=== PATIENT | female | born 1950 | race Caucasian/White ===

== ENCOUNTER → 2018-08-14 | Outpatient (CLI) | payer OTHER ==
[~2018-08-14] MED LIST: ADVAIR 250-501 EACH IH; ALLEGRA-D 12 H1 EAC1 PO; ALLEGRA-D 24 H1 EACH PO; AMBIEN 5 MG TABL5 M1 PO; ARTIFICIAL TEA1 EACH OP; ASPIR 8181 MG PO; ATIVAN0.5 MG PO; ATROVENT IH; CATAPRES0.1 MG PO; CELEBREX 200 M200 MG PO; CENTRUM SILVER1 EAC4 PO; COLACE100 MG PO; COMBIVENT INH; CYCLOBENZAPRINE5 MG PO; DHA PO; HYDROCODONE-APA1 TA1 PO; LASIX 40 MG TAB40 MG GT; LISINOPRIL20 MG PO; LISINOPRIL30 MG PO; MIRALAX17 GM PO; MULTIVITAMINS1 EAC7 PO; NEURONTIN 300300 M1 PO; NEXIUM40 MG PO; OXYBUTYNIN 5 MG5 M2 PO; PREDNISONE 10 M10 MG PO; PRINIVIL20 MG PO; REGLAN 10 MG TA10 MG PO; SINGULAIR 10 MG10 M1 PO; VENLAFAXIN37.5 MG/1 PO; VERAPAMIL ER300 MG PO; VITAMIN D400 UNIT PO; [UNRECOGNIZED DRUG - OTHER] PO
== END ==
LOC: M.RAD 15:07
DX: M19.011 Primary osteoarthritis, right shoulder (principal); M16.11 Unilateral primary osteoarthritis, right hip; M47.817 Spondylosis without myelopathy or radiculopathy, lumbosacral region; M47.814 Spondylosis without myelopathy or radiculopathy, thoracic region; G89.29 Other chronic pain

== ENCOUNTER → 2019-03-03 | Outpatient (CLI) | payer OTHER | LOC: M.RAD 02-25 14:37 | DX: Z12.31 Encounter for screening mammogram for malignant neoplasm of breast (principal); M85.89 Other specified disorders of bone density and structure, multiple sites; Z78.0 Asymptomatic menopausal state; Z88.8 Allergy status to other drugs, medicaments and biological substances ==

== ENCOUNTER → 2020-03-03 | Outpatient (CLI) | payer OTHER | LOC: M.RAD 10:06 | PROVIDERS: ATTEND Registered Nurse Diabetes Educator | DX: Z12.31 Encounter for screening mammogram for malignant neoplasm of breast (principal) ==

== ENCOUNTER → 2020-05-17 | Outpatient (CLI) | payer OTHER | LOC: M.ULTRA 04-06 11:00 | PROVIDERS: ATTEND Registered Nurse Diabetes Educator | DX: I65.23 Occlusion and stenosis of bilateral carotid arteries (principal) ==

== ENCOUNTER → 2020-11-02 | Outpatient (CLI) | payer OTHER | LOC: M.RAD 15:07 | PROVIDERS: ATTEND Registered Nurse Diabetes Educator | DX: M25.712 Osteophyte, left shoulder (principal); G89.29 Other chronic pain ==

== ENCOUNTER → 2021-03-28 | Outpatient (CLI) | payer OTHER | LOC: M.RAD 13:45 | PROVIDERS: ATTEND Orthopaedic Surgery | DX: Z12.31 Encounter for screening mammogram for malignant neoplasm of breast (principal); J84.89 Other specified interstitial pulmonary diseases; M19.041 Primary osteoarthritis, right hand ==

== ENCOUNTER 2021-04-28 16:43 | Inpatient (IN) | payer OTHER ==
[~2021-04-28] VITALS: Ht 157.5 cm; Wt 113.4 kg
[2021-04-28 16:48] VITALS: BP 127/88
[2021-04-28] MEDS ORDERED: PROAIR HFA8.5 GM INH ×2 (16:58→17:17)
[2021-04-28] MEDS ORDERED: CALCIUM/MAGNESIUM ×2 (17:00→17:18)
[2021-04-28] MEDS ORDERED: FAMOTIDINE 40 M40 M1 PO ×2 (17:01→17:19)
[2021-04-28 17:14] LABS: ABSOLUTE EOSINOPHILS 0.2 thou/uL (0.0-0.7); ABSOLUTE LYMPHOCYTES 2.9 thou/uL (0.8-5.3); ABSOLUTE MONOCYTES 0.6 thou/uL (0.0-1.2); ABSOLUTE NEUTROPHILS 6.6 thou/uL (1.6-8.1); BASOPHILS 0.4 %; EOSINOPHILS 1.6 %; HEMATOCRIT 37.6 % (37.0-47.0); HEMOGLOBIN 12.6 gm/dL (12.0-15.0); LYMPHOCYTES 27.9 %; MCH 30.9 pg (26.0-34.0); MCHC 33.5 g/dL (28.0-37.0); MCV 92.4 fL (80.0-100.0); MONOCYTES 5.7 %; MPV 7.9 fl. (7.2-11.1); NUCLEATED RBCS 0 /100WBC; PLATELET COUNT* 320 thou/uL (150-400); POLYS 64.4 %; RBC 4.07 mil/uL (4.20-5.00); RDW-CV 15.9 % (10.5-14.5); WBC 10.3 thou/uL (4.0-11.0)
[2021-04-28] MEDS ORDERED: CLONIDINE HCL0.1 M1 PO (17:18)
[2021-04-28] MEDS ORDERED: CHILDREN'S ASPI81 M1 PO (17:18)
[2021-04-28] MEDS ORDERED: FLEXERIL PO (17:18)
[2021-04-28] MEDS ORDERED: COLACE 100 MG100 MG PO (17:19)
[2021-04-28] MEDS ORDERED: ALLEGRA ALLERG180 MG PO (17:20)
[2021-04-28] MEDS ORDERED: NEURONTIN 300M300 M2 PO (17:20)
[2021-04-28] MEDS ORDERED: FUROSEMIDE 20 M20 M1 PO (17:20)
[2021-04-28] MEDS ORDERED: ADVAIR 250-501 EACH INH (17:20)
[2021-04-28] MEDS ORDERED: MUCINEX600 MG PO (17:21)
[2021-04-28] MEDS ORDERED: IRON159 MG PO ×2 (17:23→17:26)
[2021-04-28 17:25] LABS: CALCIUM 8.9 mg/dL (8.5-10.1); POTASSIUM 3.4 mmol/L (3.5-5.1)
[2021-04-28] MEDS ORDERED: SINGULAIR 10 MG10 M1 PO (17:27)
[2021-04-28] MEDS ORDERED: LORAZEPAM 0.50.5 MG PO (17:27)
[2021-04-28] MEDS ORDERED: RELAFEN750 M1 PO (17:27)
[2021-04-28] MEDS ORDERED: OMEPRAZOLE 20 M20 M1 PO (17:27)
[2021-04-28] MEDS ORDERED: [UNRECOGNIZED DRUG - OTHER] (17:28)
[2021-04-28] MEDS ORDERED: DIOVAN HCT 1601 EACH PO (17:29)
[2021-04-28] MEDS ORDERED: KLOR-CON M2020 MEQ PO (17:29)
[2021-04-28] MEDS ORDERED: EFFEXOR XR150 MG PO (17:29)
[2021-04-28 17:35] LABS: ALBUMIN 3.7 g/dL (3.4-5.0); MAGNESIUM 1.8 mg/dL (1.8-2.4); TOTAL BILIRUBIN 0.7 mg/dL (<0.1-1.0); TOTAL PROTEIN 7.4 g/dL (6.4-8.2)
[2021-04-28 20:30] VITALS: BP 138/86; BP 148/75
[2021-04-29] VITALS: BP 146/84
[2021-04-29 04:00] VITALS: BP 139/67
[2021-04-29 05:58] LABS: HEMATOCRIT 36.5 % (37.0-47.0); HEMOGLOBIN 12.1 gm/dL (12.0-15.0); MCH 30.7 pg (26.0-34.0); MCHC 33.1 g/dL (28.0-37.0); MCV 92.8 fL (80.0-100.0); MPV 8.4 fl. (7.2-11.1); RBC 3.93 mil/uL (4.20-5.00); RDW-CV 16.3 % (10.5-14.5); WBC 9.1 thou/uL (4.0-11.0)
[2021-04-29 06:25] LABS: ALBUMIN 3.4 g/dL (3.4-5.0); CALCIUM 8.5 mg/dL (8.5-10.1); CREATININE 1.2 mg/dL (0.6-1.3); MAGNESIUM 1.8 mg/dL (1.8-2.4); POTASSIUM 4.1 mmol/L (3.5-5.1); TOTAL BILIRUBIN 0.6 mg/dL (<0.1-1.0); TOTAL PROTEIN 7.2 g/dL (6.4-8.2)
[2021-04-29 07:05] LABS: INFLUENZA A ANTIGEN Negative (Negative); INFLUENZA B ANTIGEN Negative (Negative)
--- NOTE | 2021-04-29 11:00 | EKG ---
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[employer] : 1950 Requested By: Jack Henry Order Number: [id number] MD: Mars Cortes Measurements Intervals [place] Rate: 93 P: 66 [place]: 167 QRS: -43 QRSD: 166 T: 92 QT: 422 QTc: 525 Interpretive Statements Sinus rhythm Left bundle branch block Compared to ECG 09/08/2014 14:06:20 Left bundle-branch block now present Left ventricular hypertrophy no longer present Electronically Signed On 04-29-2021 11:00:42 SIDER by Mars Cortes [email or web address] <ELECTRONICALLY SIGNED> By: Mars Cortes MD, [facility] 04/29/21 1100 165 165 Mars Cortes MD, [facility] /EPI
[2021-04-29 12:00] VITALS: BP 130/72
[2021-04-29 16:30] VITALS: BP 116/72
[2021-04-29 19:30] VITALS: BP 123/78
[2021-04-30 00:32] VITALS: BP 144/80
[2021-04-30 04:00] LABS: HEMATOCRIT 36.1 % (37.0-47.0); HEMOGLOBIN 11.8 gm/dL (12.0-15.0); MCH 30.4 pg (26.0-34.0); MCHC 32.6 g/dL (28.0-37.0); MCV 93.2 fL (80.0-100.0); MPV 8.4 fl. (7.2-11.1); RBC 3.87 mil/uL (4.20-5.00); RDW-CV 16.2 % (10.5-14.5); WBC 13.7 thou/uL (4.0-11.0)
[2021-04-30 04:20] VITALS: BP 130/79
[2021-04-30 04:23] LABS: ALBUMIN 3.2 g/dL (3.4-5.0); CALCIUM 8.2 mg/dL (8.5-10.1); POTASSIUM 3.4 mmol/L (3.5-5.1); TOTAL BILIRUBIN 0.4 mg/dL (<0.1-1.0); TOTAL PROTEIN 6.8 g/dL (6.4-8.2)
[2021-04-30 08:00] VITALS: BP 147/89
[2021-04-30 11:13] VITALS: BP 128/75
[2021-04-30 15:53] VITALS: BP 15/59
[2021-04-30 19:40] VITALS: BP 128/71
[2021-05-01 00:34] VITALS: BP 120/68
[2021-05-01 04:07] VITALS: BP 125/75
[2021-05-01 05:14] LABS: HEMATOCRIT 36.3 % (37.0-47.0); HEMOGLOBIN 11.8 gm/dL (12.0-15.0); MCH 30.1 pg (26.0-34.0); MCHC 32.4 g/dL (28.0-37.0); MCV 92.9 fL (80.0-100.0); MPV 8.1 fl. (7.2-11.1); RBC 3.91 mil/uL (4.20-5.00); RDW-CV 16.8 % (10.5-14.5)
[2021-05-01 05:49] LABS: ALBUMIN 3.2 g/dL (3.4-5.0); CALCIUM 8.3 mg/dL (8.5-10.1); CREATININE 1.1 mg/dL (0.6-1.3); MAGNESIUM 2.1 mg/dL (1.8-2.4); POTASSIUM 3.6 mmol/L (3.5-5.1); TOTAL BILIRUBIN 0.4 mg/dL (<0.1-1.0); TOTAL PROTEIN 6.7 g/dL (6.4-8.2)
[2021-05-01 08:00] VITALS: BP 144/83
[2021-05-01 11:52] VITALS: BP 153/79
--- NOTE | 2021-05-01 12:31 | 2DMMODE ---
[place] [address] 2 D/M-MODE ECHOCARDIOGRAM Name: VERENA DURAN Room: [address] IN [facility]#: [id number] Admission: 04/28/21 Attend Phys: Avis Martines, Discharge: Date of : 50 Date of Service: 05/01/21 1231 Report #: [id number] THIS REPORT FOR: cc: Ines Rizvi Tammy RNP Blick, David R. MD [facility] ~ APPROVED REPORT Study performed: 05/01/2021 10:18:10 EXAM: Comprehensive 2D, Doppler, and color-flow Echocardiogram Patient Location: In-Patient Room #: [facility] Status: routine BSA: 2.08 HR: 87 bpm BP: 144/83 mmHg Rhythm: NSR Other Information Study Quality: Good Indications elevated bnp Echo Enhancing Agent Indication: Endocardial border delineation Agent(s) / Amount(s) Used: Optison 3 cc 2D Dimensions IVSd: 11.87 (7-11mm) LVOT Diam: 19.79 (18-24mm) LVDd: 53.22 mm PWd: 10.80 (7-11mm) Ascending Ao: 36.57 (22-36mm) LVDs: 40.88 (25-40mm) Aortic Root: 30.21 mm Volumes Left Atrial Volume (Systole) LA ESV Index: 45.50 mL/m2 Aortic Valve AoV Peak Juan Antonio.: 1.65 m/s AO Peak Gr.: 10.89 mmHg LVOT Max P.86 mmHg AO Mean Gr.: 6.39 mmHg LVOT Mean P.22 [place] [address] 2 D/M-MODE ECHOCARDIOGRAM Name: VERENA DURAN Room: [address]#: [id number] Admission: 04/28/21 Attend Phys: Avis Martines, Discharge: Date of : 50 Date of Service: 05/01/21 1231 Report #: [id number] LVOT Max V: 1.10 m/s AO V2 VTI: 28.73 cm LVOT Mean V: 0.67 m/s WILSON (VTI): 1.97 cm2 LVOT V1 VTI: 18.42 cm Mitral Valve MV Mean Gr.: 8.95 mmHg E/A Ratio: 0.91 MV Decel. Time: 155.66 ms MV E Max Juan Antonio.: 1.63 m/s MV PHT: 45.14 ms MVA (PHT): 4.87 cm2 TDI E/Lateral E': 18.11 Lateral E' Juan Antonio.: 0.09 m/s Pulmonary Valve PV Peak Juan Antonio.: 1.25 m/s PV Peak Gr.: 6.28 mmHg Tricuspid Valve RAP Estimate: 5.00 mmHg TR Peak Gr.: 36.65 mmHg RVSP: 41.00 mmHg PA Pressure: 41.00 mmHg Left Ventricle Left ventricle is mildly dilated. There is global hypokinesis of the left ventricle. There is normal left ventricular wall thickness. Left ventricular systolic function is severely decreased. LVEF is 25-30%. Grade I - abnormal relaxation pattern. Right Ventricle The right ventricle is normal size. The right ventricular systolic function is normal. Atria Left atrium is moderately dilated. The right atrium size is normal. Aortic Valve Mild aortic valve sclerosis. No aortic regurgitation is present. There is no aortic valvular stenosis. Mitral Valve There is mitral annular calcification. The mitral valve is normal in structure. Moderately severe mitral regurgitation No evidence [place] [address] 2 D/M-MODE ECHOCARDIOGRAM Name: VERENA DURAN Room: [address]#: [id number] Admission: 04/28/21 Attend Phys: Avis Martines, Discharge: Date of : 50 Date of Service: 05/01/21 1231 Report #: [id number] Tricuspid Valve The tricuspid valve is normal in structure. Mild tricuspid regurgitation. estimated pa pressure 50 mm Hg Pulmonic Valve The pulmonary valve is normal in structure. Mild pulmonic regurgitation. Great Vessels The aortic root is normal in size. IVC is normal in size and collapses >50% with inspiration. Pericardium There is no pericardial effusion. <Conclusion> Left ventricle is mildly dilated. LVEF is 25-30%. Left atrium is moderately dilated. Mild aortic valve sclerosis. Moderately severe mitral regurgitation Mild tricuspid regurgitation. estimated pa pressure 50 mm Hg <ELECTRONICALLY SIGNED> By: Lawrence Palacios MD, FACC 05/01/21 1231 1231 1231 Lawrence Palacios MD, FACC /INF
[2021-05-01 16:00] VITALS: BP 142/84
[2021-05-01 20:00] VITALS: BP 130/86
[2021-05-02] VITALS (7 sets, daily range): BP systolic 135–146; BP diastolic 64–783
[2021-05-02 04:52] LABS: HEMATOCRIT 37.2 % (37.0-47.0); HEMOGLOBIN 12.2 gm/dL (12.0-15.0); MCH 30.7 pg (26.0-34.0); MCHC 32.9 g/dL (28.0-37.0); MCV 93.5 fL (80.0-100.0); MPV 8.9 fl. (7.2-11.1); NUCLEATED RBCS 0 /100WBC; PLATELET COUNT* 403 thou/uL (150-400); RBC 3.97 mil/uL (4.20-5.00); RDW-CV 16.6 % (10.5-14.5); WBC 13.6 thou/uL (4.0-11.0)
[2021-05-02 04:59] LABS: ALBUMIN 3.4 g/dL (3.4-5.0); CALCIUM 8.4 mg/dL (8.5-10.1); POTASSIUM 3.4 mmol/L (3.5-5.1); TOTAL BILIRUBIN 0.5 mg/dL (<0.1-1.0); TOTAL PROTEIN 6.9 g/dL (6.4-8.2)
[2021-05-02 07:23] LABS: ABSOLUTE MONOCYTES 0.1 thou/uL (0.0-1.2); ABSOLUTE NEUTROPHILS 11.4 thou/uL (1.6-8.1); PLATELET ESTIMATE ADEQUATE
[2021-05-02] MEDS ORDERED: COREG6.25 MG PO (09:23)
[2021-05-02] MEDS ORDERED: SPIRONOLACTONE25 MG PO (09:23)
[2021-05-02] MEDS ORDERED: ENTRESTO 24 MG1 EACH PO (09:23)
[2021-05-02] MEDS ORDERED: DOXYCYCLINE 10100 MG PO (09:24)
[2021-05-03] VITALS: BP 122/70
[2021-05-03 04:00] VITALS: BP 118/65
[2021-05-03 07:37] VITALS: BP 128/71
[2021-05-03 08:00] VITALS: BP 128/70
[2021-05-03] MEDS ORDERED: DEMADEX20 MG PO (09:03)
[2021-05-03 13:29] VITALS: BP 135/78
[2021-05-03 13:41] VITALS: BP 111/66
== END 2021-05-03 14:22 | disposition home health service (06) | DRG 177 ==
LOC: M.ERS 16:43 → M.2W 18:05 → M.TBA-ER 18:05 → M.2W 21:12
PROVIDERS: Family Medicine; Internal Medicine; ADMIT Internal Medicine; ATTEND Internal Medicine
DX: J15.6 Pneumonia due to other Gram-negative bacteria (principal); I50.43 Acute on chronic combined systolic (congestive) and diastolic (congestive) heart failure; J96.01 Acute respiratory failure with hypoxia; I42.9 Cardiomyopathy, unspecified; Z68.42 Body mass index [BMI] 45.0-49.9, adult; J45.901 Unspecified asthma with (acute) exacerbation; I34.0 Nonrheumatic mitral (valve) insufficiency; Z20.822 Contact with and (suspected) exposure to COVID-19; K21.9 Gastro-esophageal reflux disease without esophagitis; I11.0 Hypertensive heart disease with heart failure; R32 Unspecified urinary incontinence; F32.A Depression, unspecified; M19.90 Unspecified osteoarthritis, unspecified site; Z88.8 Allergy status to other drugs, medicaments and biological substances; E66.9 Obesity, unspecified; Z90.49 Acquired absence of other specified parts of digestive tract; Z90.710 Acquired absence of both cervix and uterus; Z79.899 Other long term (current) drug therapy